=== PATIENT | male | born 1965 | race Caucasian/White ===

== ENCOUNTER 2021-12-31 18:37 | Emergency (ER) | payer OTHER ==
[2021-12-31 20:37] LABS: BUN/CREAT RATIO (CALC) 9.6 RATIO; CREATININE 1.25 mg/dL (0.67-1.17); POTASSIUM 4.1 mmol/L (3.5-5.1)
[2021-12-31] MEDS ORDERED: INDOCIN25 MG PO (22:19)
== END 2021-12-31 22:52 | disposition home or self-care (01) ==
LOC: FER 18:37
PROVIDERS: Nurse Practitioner Family
DX: M10.9 Gout, unspecified (principal)
CPT/HCPCS: 36415; 73630; 80048; 84550; J1100